=== PATIENT | female | born 1995 | race Hispanic/Latino ===

== ENCOUNTER 2023-07-09 14:11 | Emergency (ER) | payer OTHER ==
[2023-07-09] MEDS ORDERED: Ibuprofen 200 MG TAB ONE (15:03)
[2023-07-09] MEDS ORDERED: HYDROcodone/Acetaminophen 5/325 mg Tablet ONE (15:03)
[2023-07-09] MEDS ORDERED: Propranolol HCl 20 MG TAB PO SCH (15:15)
== END 2023-07-09 15:27 | disposition home or self-care (01) ==
LOC: NAV ERS 14:11
DX: K08.89 Other specified disorders of teeth and supporting structures (principal); R00.0 Tachycardia, unspecified; F17.210 Nicotine dependence, cigarettes, uncomplicated
CPT/HCPCS: 93005

== ENCOUNTER 2023-10-22 02:06 | Emergency (ER) | payer OTHER, SELFPAY ==
[2023-10-22] MEDS ORDERED: Sodium Chloride 0.9% 1,000 ML ONE (02:29)
[2023-10-22] MEDS ORDERED: Acetaminophen 325 MG TAB ONE (02:29)
[2023-10-22 02:32] LABS: #Lymphocytes 0.6 thou/uL (1.20-3.40); #Monocytes 0.6 thou/uL (0.11-0.59); #Neutrophils 7.3 thou/uL (1.40-6.50); %Basophils 0.5 % (0.0-1.0); %Eosinophils 0.2 % (0.0-10.0); %Lymphocytes 6.5 % (21.0-51.0); %Monocytes 7.5 % (0.0-10.0); %Neutrophils 85.4 % (42.0-75.0); Hematocrit 35.7 % (36.0-47.0); Hemoglobin 11.5 g/dL (12.0-16.0); Mean Corpuscular HGB CONC 32.1 g/dL (32.0-36.0); Mean Corpuscular Hemoglobin 26.5 pg (27.0-31.0); Mean Corpuscular Volume 82.5 fl (78.0-98.0); Mean Platelet Volume 9.6 fL (7.4-10.4); Platelet Count 186 10x3/uL (130-400); RBC Distribution Width 13.2 % (11.5-14.5); Red Blood Cell (RBC) Count 4.33 mill/uL (4.20-5.40); White Blood Cell (WBC) Count 8.5 10x3/uL (4.8-10.8)
[2023-10-22 02:47] LABS: ALT (SGPT) 17 U/L (8-55); AST (SGOT) 18 U/L (5-34); Albumin 4.1 g/dL (3.5-5.0); Alkaline Phosphatase 92 U/L (40-110); Anion Gap 13 mmol/L (10-20); BUN (Urea Nitrogen) 7 mg/dL (7.0-18.7); Bilirubin, Total 0.3 mg/dL (0.2-1.2); Calc. Creatinine Clearance 0 mL/min (70-130); Calcium 8.5 mg/dL (7.8-10.44); Carbon Dioxide 21 mmol/L (22-29); Chloride 102 mmol/L (98-107); Estimated GFR 91; Globulin 3.4 g/dL (2.4-3.5); Glucose 152 mg/dL (70-105); Potassium 3.2 mmol/L (3.5-5.1); Protein, Total 7.5 g/dL (6.0-8.3); Sodium 133 mmol/L (136-145)
[2023-10-22 03:06] LABS: SARS-CoV-2 NAA Rapid Test Not Detected (NotDetected)
== END 2023-10-22 03:40 | disposition home or self-care (01) ==
LOC: NAV ERS 02:06
DX: B34.9 Viral infection, unspecified (principal); J06.9 Acute upper respiratory infection, unspecified; R00.0 Tachycardia, unspecified; Z20.822 Contact with and (suspected) exposure to COVID-19
CPT/HCPCS: 36415; 71046; 80053; 83605; 85025; 87040; 87149; 87804; 96360; J7050; U0002

== ENCOUNTER 2024-06-29 14:07 | Emergency (ER) | payer MEDICARE, SELFPAY ==
[2024-06-29] MEDS ORDERED: Lidocaine 1% (PF) 30 ML VIAL ONE (14:51)
[2024-06-29] MEDS ORDERED: Bacitracin 1 PK ONE (15:25)
== END 2024-06-29 15:41 | disposition home or self-care (01) ==
LOC: NAV ERS 14:07
DX: L60.0 Ingrowing nail (principal)
CPT/HCPCS: 11760; J2001

== ENCOUNTER 2024-08-10 17:52 | Emergency (ER) | payer BC, MEDICAID, MEDICARE, SELFPAY ==
[2024-08-10] MEDS ORDERED: methylPREDNISolone Acetate 40 mg/ml Vial ONE (19:43)
== END 2024-08-10 20:09 | disposition home or self-care (01) ==
LOC: NAV ERS 17:52
DX: J30.9 Allergic rhinitis, unspecified (principal); R09.82 Postnasal drip; F17.210 Nicotine dependence, cigarettes, uncomplicated
CPT/HCPCS: 87081; 87428; 87430; 96372; 99283; J1030